=== PATIENT | female | born 1945 | race Caucasian/White ===

== ENCOUNTER 2016-05-26 04:20 | Emergency (ER) | payer MEDICARE ==
[~2016-05-26] VITALS: Ht 157.5 cm; Wt 56.8 kg
[~2016-05-26 04:20] MED LIST: AMOXICILLIN 8751 TAB PO; ASPIRIN 81M81 MG/TA2 PO; ATIVAN 1MG T1 MG/TAB PO; CEFTIN 250250 MG/TAB PO; CEFTIN500 MG PO; COZAAR 50MG50 MG/TAB PO; DARVOCET N; DIFLUCAN150 MG PO; EPI EZ PEN1 MG/ML IM; FLONASE NASAL S16 GM NS; FOSAMAX 10M10 MG/TAB PO; GLUCOPHAGE500 MG PO; GLUCOPHAGE500 MG/TAB PO; HCTZ; LIPITOR20 MG PO; LORTAB 5/500 501 TAB PO; MACROBID 1100 MG/CAP PO; MAXZIDE-25MG TA1 TAB PO; MOBIC15 MG PO; MOTRIN 600600 MG/TAB PO; NAPROXEN ER500 MG PO; NEURONTIN300 MG/CAP PO; NORCO 325 MG-51 TAB PO; PERCOCET 325 MG1 TA2 PO; POTASSIUM CHLO25 ME1 PO; PREDNISONE10 MG PO; PREDNISONE20 MG PO; PROVENTIL0.09 MG/A1 IH; PYRIDIUM 100MG100 MG PO; PYRIDIUM200 M1 PO; ULTRAM 50MG TAB50 MG PO; ZETIA 10MG TAB10 MG PO; ZETIA10 MG PO
[2016-05-26 04:25] VITALS: TEMP 98.3
[2016-05-26 05:02] LABS: PH 5 (5-8); URINE APPEARANCE Clear; URINE BACTERIA None Seen /hpf; URINE BILIRUBIN Negative (NEGATIVE); URINE BLOOD 1+ (NEGATIVE); URINE COLOR Red; URINE GLUCOSE 1+ (NEGATIVE); URINE KETONE Negative (NEGATIVE); URINE UROBILINOGEN >=4.0 mg/dL (NEGATIVE)
[2016-05-26 05:03] LABS: URINE WBC 0-2 /hpf
[2016-05-26] MEDS ORDERED: MACROBID 1100 MG/CAP PO (05:24)
[2016-05-26] MEDS ORDERED: DIFLUCAN200 MG PO (05:24)
[2016-05-26 05:45] VITALS: BP 141/69; PULSE 95
== END 2016-05-26 05:55 | disposition home or self-care (01) ==
LOC: COL.ER 04:20
PROVIDERS: Emergency Medicine
DX: N30.90 Cystitis, unspecified without hematuria (principal); E11.9 Type 2 diabetes mellitus without complications; I10 Essential (primary) hypertension; Z85.44 Personal history of malignant neoplasm of other female genital organs; Z79.84 Long term (current) use of oral hypoglycemic drugs

== ENCOUNTER 2017-10-04 05:01 | Emergency (ER) | payer MEDICARE ==
[~2017-10-04] VITALS: Ht 162.6 cm; Wt 66.8 kg
[~2017-10-04 05:01] MED LIST changes: +DIFLUCAN200 MG PO
[2017-10-04] MEDS ORDERED: ATIVAN 0.50.5 MG/TAB PO (05:14)
[2017-10-04] MEDS ORDERED: NORCO 325 MG-51 TAB PO (05:15)
[2017-10-04 05:27] LABS: COLLECTION METHOD CLEAN CATCH
[2017-10-04 05:34] LABS: MUCOUS Present /lpf; PH 5 (5-8); URINE APPEARANCE Hazy; URINE BACTERIA Rare /hpf; URINE BILIRUBIN Negative (NEGATIVE); URINE BLOOD 1+ (NEGATIVE); URINE COLOR Amber; URINE GLUCOSE Negative (NEGATIVE); URINE KETONE Negative (NEGATIVE); URINE LEUKOCYTE ESTERASE 2+ (NEGATIVE); URINE NITRATE Positive (NEGATIVE); URINE PROTEIN(semi-quant) Negative (NEGATIVE)
[2017-10-04 05:45] LABS: BASO # 0.1 (0.0-0.2); BASO % 0.7 % (0.0-2.0); EOS # 0.2 (0.0-0.7); EOS % 1.6 % (0-4.0); GRAN # 8.2 (1.4-6.5); GRAN % 71.8 % (42.2-75.2); HEMATOCRIT 39.3 % (37.0-47.0); HEMOGLOBIN 13.1 g/dl (12.5-16.0); LYMPH # 2.3 (1.2-3.4); MEAN CELL VOLUME 85 fl (80.0-100.0); MEAN CORPUSCULAR HEMOGLOBIN 28 pg (27.0-31.0); MEAN CORPUSCULAR HGB CONC 33 g/dl (33.0-37.0); MEAN PLATELET VOLUME 10.4 fl (7.4-10.4); MONO # 0.6 (0.1-0.6); MONO % 5.6 % (1.7-9.3); PLATELET COUNT 250 K/mm3 (130-400); RED BLOOD COUNT 4.62 M/mm3 (4.10-5.30); REDCELL DISTRIBUTION WIDTH-CV 12.9 % (11.5-14.5)
[2017-10-04 05:58] LABS: ALBUMIN 3.9 gm/dL (3.5-5.0); BILIRUBIN,TOTAL 0.4 mg/dL (0.0-1.0); CALCIUM 10.3 mg/dL (8.4-10.2); CREATININE, serum 0.98 mg/dL (0.52-1.25); POTASSIUM 4.2 mmol/L (3.4-5.0); TOTAL PROTEIN 7.4 gm/dL (6.4-8.2)
[2017-10-04] MEDS ORDERED: CEPHALEXIN500 M1 PO (06:01)
[2017-10-04 06:15] VITALS: BP 165/78; PULSE 98; TEMP 97
== END 2017-10-04 06:17 | disposition home or self-care (01) ==
LOC: COL.ER 05:01
PROVIDERS: Emergency Medicine
DX: N39.0 Urinary tract infection, site not specified (principal); E11.9 Type 2 diabetes mellitus without complications; I10 Essential (primary) hypertension; E78.5 Hyperlipidemia, unspecified; F17.210 Nicotine dependence, cigarettes, uncomplicated; Z79.82 Long term (current) use of aspirin; Z79.84 Long term (current) use of oral hypoglycemic drugs

== ENCOUNTER → 2018-11-30 | Emergency (ER) | payer MEDICARE, OTHER ==
[~2018-11-30] VITALS: Ht 154.9 cm; Wt 68.2 kg
[~2018-11-30] MED LIST changes: +ATIVAN 0.50.5 MG/TAB PO; +BACTRIM DS 8001 TAB PO; +CEPHALEXIN500 M1 PO
[2018-11-30 09:31] VITALS: BP 140/67; TEMP 98.3
[2018-11-30 09:57] LABS: COLLECTION METHOD CLEAN CATCH
[2018-11-30 10:02] LABS: PH 6 (5-8); SQUAMOUS EPITHELIAL 0-2 /hpf; URINE APPEARANCE Clear; URINE BACTERIA Rare /hpf; URINE BILIRUBIN Negative (NEGATIVE); URINE BLOOD 1+ (NEGATIVE); URINE COLOR Amber; URINE GLUCOSE Negative (NEGATIVE); URINE KETONE Negative (NEGATIVE); URINE LEUKOCYTE ESTERASE Negative (NEGATIVE); URINE NITRATE Positive (NEGATIVE); URINE PROTEIN(semi-quant) Negative (NEGATIVE); URINE RBC 0-2 /hpf; URINE UROBILINOGEN >=4.0 mg/dL (NEGATIVE)
[2018-11-30 10:30] VITALS: PULSE 97
== END ==
LOC: COL.ER 09:23
PROVIDERS: Nurse Practitioner Primary Care
DX: N39.0 Urinary tract infection, site not specified (principal); E78.5 Hyperlipidemia, unspecified; E11.9 Type 2 diabetes mellitus without complications; I10 Essential (primary) hypertension; F17.210 Nicotine dependence, cigarettes, uncomplicated; Z90.710 Acquired absence of both cervix and uterus; Z98.890 Other specified postprocedural states; Z79.82 Long term (current) use of aspirin; Z79.84 Long term (current) use of oral hypoglycemic drugs